=== PATIENT | male | born 1995 | race Asian ===

== ENCOUNTER 2017-09-15 02:36 | Emergency (ER) | payer OTHER ==
[2017-09-15] MEDS ORDERED: NS 1,000 ML IV ONE (02:40)
[2017-09-15 02:42] VITALS: TEMP 97.3
--- NOTE | 2017-09-15 02:45 | EDPHY ---
H & P HPI/ROS: HPI CHIEF COMPLAINT: Alcohol Intoxication HISTORY OF PRESENT ILLNESS: Patient is a 22-year-old male brought in by EMS after was [place] lying in the middle of the street unresponsive. They initially evaluated him and placed a nasal airway and brought him to the emergency room. There is no reported trauma. But there is no bystanders to give any history. He presents emergency room appears highly intoxicated with alcohol. He smells of alcohol. No trauma on exam. However very sleepy. Past Medical History: Unknown medical history Past Surgical History: Unknown surgical history Social History: Unknown Family History: Unknown ROS REVIEW OF SYSTEMS: Limited due to patient's mental state most likely intoxicated with alcohol. Exam Constitutional Intoxicated, triage nursing summary reviewed, vital signs reviewed, Sleepy, smells of alcohol Eyes normal conjunctivae and sclera, horizontal beating nystagmus consistent acute alcohol intoxication, otherwise pupils equal and react to light HENT normal inspection, atraumatic, moist mucus membranes, no epistaxis, neck supple/ no meningismus, no raccoon eyes. Respiratory clear to auscultation bilaterally, normal breath sounds, no respiratory distress, no wheezing. Cardiovascular rate normal, regular rhythm, no murmur, no edema, distal pulses normal. Gastrointestinal soft, non-tender, no rebound, no guarding, normal bowel sounds, no distension, no pulsatile mass. Genitourinary no CVA tenderness. Musculoskeletal no midline vertebral tenderness, full range of motion, no calf swelling, no tenderness of extremities, no meningismus, good pulses, neurovascularly intact. Skin pink, warm, & dry, no rash, skin atraumatic. Neurologic sleepy, intoxicated with alcohol,, alert and oriented x 3, AAOx3, moves all 4 extremities equally, motor intact, sensory intact, CN II-XII intact , , normal vision, normal speech. Psychiatric normal mood/affect. Heme/Lymph/Immune no lymphadenopathy. Differential Diagnosis: Includes but is not limited to in a particular order acute alcohol intoxication, alcohol abuse, dehydration, electrolyte abnormality , nausea vomiting from acute alcohol intoxication Medical Decision Making: Plan for this patient IV establishment with monitor, IV fluid bolus, IV Zofran as needed for nausea vomiting, check serum alcohol level. Proceed with CT scan of the head without contrast Re-evaluation: Serum alcohol level 318. Patient became somewhat agitated 0350: Is given 2 mg IV Versed. Also patient to CT scan for his head for trauma/given unresponsiveness. CT head without contrast called to me by Dr. Paolo Limon negative for traumatic injury. 0517: Patient now resting. No acute distress. On monitor. Sobering. 0600: Patient ambulated well throughout the emergency room to the bathroom. Steady gait. He safe for discharge to alcohol detox. Source: Patient, EMS Constitutional: Initial Vital Signs Temperature (C) 36.3 C 09/15/17 02:40 Heart Rate 87 09/15/17 02:40 Respiratory Rate 16 09/15/17 02:40 Blood Pressure 132/72 H 09/15/17 02:40 O2 Sat (%) 94 09/15/17 02:40 O2 Delivery Mode Room Air O2 (L/minute) 2 Allergies/Adverse Reactions: Unable to Assess Allergy (Unverified 09/15/17 02:42) Home Medications: Medication Instructions Recorded Unobtainable 09/15/17 Medical Decision Making - Data Points Laboratory Results: Laboratory Results 09/15/17 02:30 09/15/17 02:30 09/15/17 09/15/17 02:30 02:30 WBC 7.36 10^3/uL 10^3/uL (3.80-9.50) RBC 5.33 10^6/uL 10^6/uL (4.40-6.38) Hgb 17.0 g/dL g/dL (13.7-17.5) Hct 46.8 % % (40.0-51.0) MCV 87.8 fL fL (81.5-99.8) MCH 31.9 pg pg (27.9-34.1) MCHC 36.3 g/dL g/dL (32.4-36.7) RDW 12.4 % % (11.5-15.2) Plt Count 259 10^3/uL 10^3/uL (150-400) MPV 8.5 fL L fL (8.7-11.7) Neut % (Auto) 50.8 % % (39.3-74.2) Lymph % (Auto) 40.8 % % (15.0-45.0) [place] % (Auto) 6.3 % % (4.5-13.0) Eos % (Auto) 1.1 % % (0.6-7.6) Baso % (Auto) 0.7 % % (0.3-1.7) Nucleat RBC Rel Count 0.0 % % (0.0-0.2) Absolute Neuts (auto) 3.75 10^3/uL 10^3/uL (1.70-6.50) Absolute Lymphs (auto) 3.00 10^3/uL 10^3/uL (1.00-3.00) Absolute Monos (auto) 0.46 10^3/uL 10^3/uL (0.30-0.80) Absolute Eos (auto) 0.08 10^3/uL 10^3/uL (0.03-0.40) Absolute Basos (auto) 0.05 10^3/uL 10^3/uL (0.02-0.10) Absolute Nucleated RBC 0.00 10^3/uL 10^3/uL (0-0.01) Immature Gran % 0.3 % % (0.0-1.1) Immature Gran # 0.02 10^3/uL 10^3/uL (0.00-0.10) Sodium 148 mEq/L H mEq/L (134-144) Potassium 5.4 mEq/L H mEq/L (3.5-5.2) Chloride 106 mEq/L mEq/L (97-110) Carbon Dioxide 24 mEq/l mEq/l (22-31) Anion Gap 18 mEq/L H mEq/L (8-16) BUN 19 mg/dL mg/dL (7-23) Creatinine 1.2 mg/dL mg/dL (0.7-1.3) Estimated GFR > 60 Glucose 79 mg/dL mg/dL (70-100) Calcium 9.4 mg/dL mg/dL (8.5-10.4) Ethyl Alcohol 318 mg/dL H mg/dL (0-10) Medications Given: Discontinued Medications Sodium Chloride (Ns) 1,000 mls @ 0 mls/hr IV ONCE ONE PRN Reason: Wide Open Stop: 09/15/17 02:41 Last Admin: 09/15/17 02:43 Dose: 1,000 mls Midazolam HCl (Versed) 2 mg IVP EDNOW ONE Stop: 09/15/17 03:01 Last Admin: 09/15/17 03:02 Dose: 2 mg Midazolam HCl (Versed) 2 mg IVP EDNOW ONE Stop: 09/15/17 03:17 Last Admin: 09/15/17 03:17 Dose: 2 mg Ondansetron HCl (Zofran) 4 mg IVP EDNOW ONE Stop: 09/15/17 03:25 Last Admin: 09/15/17 03:25 Dose: 4 mg Departure - Departure Disposition: Home, Routine, Self-Care Clinical Impression: Alcoholic intoxication Qualifiers: Complication of substance-induced condition: uncomplicated Qualified Code(s): F10.920 - Alcohol use, unspecified with intoxication, uncomplicated Condition: Good Instructions: Alcohol Intoxication (ED), Abuse of Alcohol (ED) Referrals: Patient,NotPresent [Primary Care Provider] - As per Instructions
[2017-09-15 02:50] LABS: % IMMATURE GRANULYOCYTES 0.3 % (0.0-1.1); ABSOLUTE IMMATURE GRANULOCYTES 0.02 10^3/uL (0.00-0.10); ADD DIFF? NO; ADD MORPH? NO; ADD SCAN? NO; ATYPICAL LYMPHOCYTE FLAG 40 (0-99); FRAGMENT RBC FLAG 0 (0-99); HEMATOCRIT 46.8 % (40.0-51.0); LEFT SHIFT FLG 0 (0-99); LIPEMIA HEMOLYSIS FLAG 90 (0-99); MEAN CELL HEMOGLOBIN 31.9 pg (27.9-34.1); MEAN CELL HEMOGLOBIN CONCENTR. 36.3 g/dL (32.4-36.7); MEAN CELL VOLUME 87.8 fL (81.5-99.8); MEAN PLATELET VOLUME 8.5 fL (8.7-11.7); PLATELET CLUMPS FLAG 10 (0-99); PLATELET COUNT 259 10^3/uL (150-400); RED BLOOD CELL COUNT 5.33 10^6/uL (4.40-6.38); RED CELL DISTRIBUTION WIDTH 12.4 % (11.5-15.2)
[2017-09-15] MEDS ORDERED: MIDAZOLAM 2 MG/2 ML VIAL ONE (03:00)
[2017-09-15] MEDS ORDERED: MIDAZOLAM 2 MG/2 ML VIAL IVP ONE ×2 (03:00→03:16)
[2017-09-15 03:09] LABS: ANION GAP 18 mEq/L (8-16); CALCIUM 9.4 mg/dL (8.5-10.4); CARBON DIOXIDE 24 mEq/l (22-31); CHLORIDE 106 mEq/L (97-110); CREATININE 1.2 mg/dL (0.7-1.3); GLOMERULAR FILTRATION RATE > 60; GLUCOSE 79 mg/dL (70-100); POTASSIUM 5.4 mEq/L (3.5-5.2); SODIUM 148 mEq/L (134-144)
[2017-09-15] MEDS ORDERED: ONDANSETRON 4 MG/2 ML VIAL ONE (03:18)
[2017-09-15 03:19] LABS: ETHANOL SERUM 318 mg/dL (0-10)
[2017-09-15] MEDS ORDERED: ONDANSETRON 4 MG/2 ML VIAL IVP ONE (03:24)
[2017-09-15 06:21] VITALS: BP 123/69; PULSE 73; RESP 18; O2SAT 95
== END 2017-09-15 09:14 | disposition home or self-care (01) ==
DX: F10.920 Alcohol use, unspecified with intoxication, uncomplicated (principal)
CPT/HCPCS: 96374; G0480; J2250; J2405